=== PATIENT | female | born 1985 | race Caucasian/White ===

== ENCOUNTER 2018-04-27 09:57 | Emergency (ER) | payer OTHER ==
[2018-04-27 11:12] LABS: URINE BLOOD (Dip) POC 1+ (NEGATIVE); URINE GLUCOSE (Dip) POC Negative (NEGATIVE); URINE KETONES (Dip) POC Negative (NEGATIVE); URINE LEUKOCYTE EST (Dip) POC Negative (NEGATIVE); URINE NITRITE (Dip) POC Negative (NEGATIVE); URINE TOTAL PROTEIN POC Negative (NEGATIVE)
[2018-04-27 11:31] LABS: ADD MAN DIFF? NO
[2018-04-27 11:39] LABS: BASOPHIL # 0.1 10^3/ul (0.0-0.1); BASOPHILS % 0.7 % (0.0-2.0); EOSINOPHILS # 0.1 10^3/ul (0.0-0.5); EOSINOPHILS % 0.8 % (0.0-7.0); HEMATOCRIT 33.2 % (37.0-47.0); HEMOGLOBIN 10.3 g/dl (12.0-16.0); LYMPHOCYTES # 2.4 10^3/ul (0.8-2.9); LYMPHOCYTES % 23.2 % (15.0-51.0); MEAN CORPUSCULAR HEMOGLOBIN 23.9 pg (29.0-33.0); MEAN PLATELET VOLUME 9.2 fl (7.4-10.4); MONOCYTE # 0.9 10^3/ul (0.3-0.9); NEUTROPHIL # 6.7 10^3/ul (1.6-7.5); NEUTROPHILS % 65.9 % (39.0-77.0); PLATELET COUNT 380 10^3/UL (140-415); RED BLOOD COUNT 4.31 10^6/ul (4.20-5.40); RED CELL DISTRIBUTION WIDTH 15.7 % (11.5-14.5)
[2018-04-27 11:39] LABS: WHITE BLOOD COUNT 10.2 10^3/ul (4.8-10.8)
[2018-04-27 11:47] LABS: UR AMORPHOUS CRYSTAL FEW /HPF (NONE SEEN); UR RBC 1 /HPF (0-5); UR SQUAMOUS EPITHELIAL CELL FEW /HPF (FEW); UR WBC 2 /HPF (0-5)
[2018-04-27 11:56] LABS: ADD UMIC YES; UR ASCORBIC ACID NEGATIVE (NEGATIVE); UR BACTERIA FEW /HPF (NONE SEEN); UR BILIRUBIN (Dip) NEGATIVE (NEGATIVE); UR BLOOD (Dip) 1+ mg/dL (NEGATIVE); UR CLARITY SLIGHTLY CLOUDY (CLEAR); UR COLOR STRAW (YELLOW); UR GLUCOSE (Dip) NEGATIVE (NEGATIVE); UR KETONES (Dip) NEGATIVE (NEGATIVE); UR LEUKOCYTE ESTERASE (Dip) NEGATIVE Leu/ul (NEGATIVE); UR NITRITE (Dip) NEGATIVE (NEGATIVE); UR SPECIFIC GRAVITY (Dip) 1.005 (1.003-1.030); UR TOTAL PROTEIN (Dip) NEGATIVE (NEGATIVE); UR UROBILINOGEN (Dip) NEGATIVE (NEGATIVE)
[2018-04-27 12:00] LABS: ALANINE AMINOTRANSFERASE 25 IU/L (13-69); ALBUMIN 4.6 g/dl (3.3-4.9); ALBUMIN/GLOBULIN RATIO 1.27; ALKALINE PHOSPHATASE 77 IU/L (42-121); ANION GAP 16 (8-16); ASPARTATE AMINO TRANSFERASE 25 IU/L (15-46); BLOOD UREA NITROGEN 9 mg/dl (7-20); CALCIUM 9.3 mg/dl (8.4-10.2); CARBON DIOXIDE 22 mmol/L (21-31); CHLORIDE 109 mmol/L (97-110); CREATININE 0.54 mg/dl (0.44-1.00); GLUCOSE 94 mg/dl (70-220); LIPASE 92 U/L (23-300); POTASSIUM 4.4 mmol/L (3.5-5.1); SODIUM 143 mmol/L (135-144); TOTAL PROTEIN 8.2 g/dl (6.1-8.1)
[2018-04-27] MEDS: ONDANSETRON (ODT) 4 MG TAB ODT (12:35)
[2018-04-27] MEDS: HYDROCODONE/APAP (5/325) TAB PO ×2 (12:35→12:38)
== END 2018-04-27 13:01 | disposition home or self-care (01) ==
LOC: FTE 09:57
DX: K80.20 Calculus of gallbladder without cholecystitis without obstruction (principal); R10.2 Pelvic and perineal pain
CPT/HCPCS: 36415; 76705; 80053; 81001; 81003; 81025; 83690; 84703; 85025; 99284-25

== ENCOUNTER 2018-07-11 05:55 | Day surgery (SDC) | payer OTHER ==
[2018-07-11] MEDS ORDERED: SOD CHLORIDE 0.9% 1,000 ML IV (06:00)
[2018-07-11] MEDS ORDERED: CEFAZOLIN 2 GM/50 ML (PMX) 50 ML IVPB (06:00)
[2018-07-11] MEDS ORDERED: FENTAnyl 50 MCG/ML VIAL IV ×3 (07:30)
[2018-07-11] MEDS ORDERED: EPHEDrine SULFATE 50 MG/5 ML SYG IV (07:30)
[2018-07-11] MEDS ORDERED: OXYCODONE/ACETAMINOPHEN (5/325) TAB PO ×2 (07:30)
[2018-07-11] MEDS ORDERED: DIPHENHYDRAMINE 50 MG INJ IV (07:30)
[2018-07-11] MEDS ORDERED: METOCLOPRAMIDE 10 MG INJ IV (07:30)
[2018-07-11] MEDS ORDERED: HYDROmorphONE 1 MG/5 ML IV SYRINGE IV (07:30)
[2018-07-11] MEDS ORDERED: hydrALAzine 20 MG INJ IV (07:30)
[2018-07-11] MEDS ORDERED: MEPERIDINE 25 MG INJ IV (07:30)
[2018-07-11] MEDS ORDERED: LABETALOL HCL 20MG INJ IV (07:30)
[2018-07-11] MEDS ORDERED: NEOSTIGMINE 3 MG/3 ML SYRINGE ×2 (07:45→08:06)
[2018-07-11] MEDS ORDERED: GLYCOPYRROLATE 1 MG INJ ×2 (07:45→08:06)
[2018-07-11] MEDS ORDERED: LIDOCAINE 2% (SDV) 5 ML INJ (07:45)
[2018-07-11] MEDS ORDERED: MEPERIDINE 100 MG INJ (07:45)
[2018-07-11] MEDS ORDERED: ROCURONIUM 50 MG INJ (07:45)
[2018-07-11] MEDS ORDERED: PROPOFOL 20 ML (07:45)
[2018-07-11] MEDS ORDERED: SUCCINYLCHOLINE CHLORIDE 100 MG/5 ML SYG IV (07:45)
[2018-07-11] MEDS ORDERED: ONDANSETRON 4 MG INJ (08:05)
[2018-07-11] MEDS ORDERED: METOCLOPRAMIDE 10 MG INJ (08:06)
[2018-07-11] MEDS: BUPIVACAINE 0.25% (MPF) 30 ML INJ (08:09)
[2018-07-11] MEDS: HYDROmorphONE 1 MG/5 ML IV SYRINGE IV ×2 (08:55→09:05)
[2018-07-11] MEDS: HYDROCODONE/APAP (5/325) TAB PO (09:23)
[2018-07-11] MEDS: ONDANSETRON 4 MG INJ IV (09:59)
== END 2018-07-11 11:34 | disposition home or self-care (01) ==
LOC: SDS 05:55
DX: K80.10 Calculus of gallbladder with chronic cholecystitis without obstruction (principal)
CPT/HCPCS: 47562; 88304